=== PATIENT | male | born 1995 | race Caucasian/White ===

== ENCOUNTER 2017-03-02 12:22 | Emergency (ER) | payer SELFPAY ==
--- NOTE | 2017-03-06 08:27 | ER ---
ADMIT: 03/02/2017 RM/LOC: ER [facility] MR#: [id number] [address] [id number] [place]RYSTAL DE LA PAZ [address] [place] [address] Emergency Room Report SEX: M AGE: 21 : 1995 DATE: 03/02/2017 ADDENDUM: The patient comes to the ER confused, having constant vomiting all morning. He states that he drank a lot of Tequila last night and that is affecting him this morning. He states recently, he has been drinking a lot more, drinking more than a quart daily. He has had a history of alcoholism in the past. On physical exam, he is tender in the epigastric area. No rebound tenderness or guarding. Posterior pharynx is benign. Oral mucosa is dry. IV of normal saline was started. He was given a liter of bolus. CBC and CMP were normal. Lipase was also normal. We did talk a lot about treatment for alcoholism. I gave him the brochure to [facility] for followup. Please see my T-sheet. DOMINIK Maier / Pramod Santos MD / [facility] JOB #: [id number] CC: Pramod Santos MD, Attending Physician Chuck Avila MD, Family Physician
== END 2017-03-02 14:35 | disposition home or self-care (01) ==
LOC: ER 12:22
DX: K29.20 Alcoholic gastritis without bleeding (principal); F17.210 Nicotine dependence, cigarettes, uncomplicated